=== PATIENT | female | born 1995 | race African-American/Black ===

== ENCOUNTER 2016-08-12 09:37 | Inpatient (IN) | payer OTHER ==
[2016-08-12] VITALS (28 sets, daily range): BP systolic 121–156; BP diastolic 78–107
[~2016-08-12] VITALS: Ht 162.6 cm; Wt 72.0 kg
[~2016-08-12 09:37] MED LIST: PRENTAB9 PO
[2016-08-12 15:38] LABS: BASO # 0.1 K/mm3 (0.0-0.2); BASO % 1.1 % (0.0-1.0); EOS # 0.2 K/mm3 (0.0-0.50); EOS % 2.5 % (0.0-3.0); LARGE UNSTAINED CELL # 0.1 K/mm3 (0.0-0.4); LARGE UNSTAINED CELL % 1.7 % (0.0-4.0); LYMPH # 1.7 K/mm3 (1.5-6.5); MEAN CORPUSCULAR HEMOGLOBIN 27.5 pg (27.0-33.0); MEAN CORPUSCULAR HGB CONC 34.1 g/dl (32.0-36.5); MEAN CORPUSCULAR VOLUME 80.5 fl (80.0-96.0); MONO # 0.3 K/mm3 (0.0-0.8); MONO % 5.3 % (0.0-5.0); NEUTROPHILS # 3.9 K/mm3 (1.8-7.7); NEUTROPHILS % 63.3 % (36.0-66.0); PLATELET COUNT, AUTOMATED 171 k/mm3 (150-450); RED CELL DISTRIBUTION WIDTH 15.1 % (11.5-14.5); WHITE BLOOD COUNT 6.1 K/mm3 (4.0-10.0)
[2016-08-12 15:56] LABS: ALBUMIN 2.6 GM/DL (3.2-5.2); ALBUMIN/GLOBULIN RATIO 0.76 (1.00-1.93); ALKALINE PHOSPHATASE 171 U/L (45-117); ALT/SGPT 13 U/L (12-78); AST/SGOT 16 U/L (15-37); BILIRUBIN,DIRECT 0.1 MG/DL (0.0-0.2); BILIRUBIN,TOTAL 0.3 MG/DL (0.2-1.0); CREATININE FOR GFR 1.21 MG/DL (0.55-1.02); GLOMERULAR FILTRATION RATE > 60.0 (>60); URIC ACID 6.3 MG/DL (2.6-6.0)
[2016-08-12] MEDS ORDERED: PENICILLIN G POTASSIUM IV 5 MU in D5W MINI-BAG PLUS 100 ML IV STA (17:59)
[2016-08-12] MEDS ORDERED: OXYTOCIN DRIP 30 UNITS in APPROPRIATE DILUENT 1 EA IV SCH (18:00)
[2016-08-12] MEDS ORDERED: CALCIUM GLUCONATE 1,000 MG in D5W MINI-BAG PLUS 100 ML IV PRN (18:00)
[2016-08-12] MEDS ORDERED: MAG Sulf (L&D) 4 GM/100 ML 4 GM in APPROPRIATE DILUENT 1 EA IV ONE (18:00)
[2016-08-12] MEDS: LR 1,000 ML IV SCH (18:37)
[2016-08-12] MEDS: MAG Sulf (OBGYN) 20GM/500ML 20,000 MG in APPROPRIATE DILUENT 1 EA IV SCH (18:59)
[2016-08-12] MEDS: PENICILLIN G POTASSIUM IV 2.5 MU in D5W 100 ML IV SCH (22:35)
[2016-08-12] MEDS ORDERED: FENTANYL 2MCG/ML ROPIVACAINE 0.2% NACL 250 ML CADD As Ordered ONE (23:42)
[2016-08-13] VITALS (52 sets, daily range): BP systolic 106–137; BP diastolic 63–98
[2016-08-13] MEDS ORDERED: ONDANSETRON 4MG/2ML VIAL (J2405) IV PRN (00:33)
[2016-08-13] MEDS ORDERED: EPIDURAL COMMENT XX SCH (00:33)
[2016-08-13] MEDS ORDERED: NALOXONE INJ 0.4 MG/1 ML VIAL (J2310) IV PRN (00:33)
[2016-08-13] MEDS: FENTANYL/ROPIVACAINE/NACL CADD 250 ML EPIDURAL SCH (00:33)
[2016-08-13] MEDS ORDERED: EPIDURAL/PCA KEYS XX PRN (00:33)
[2016-08-13] MEDS ORDERED: diphenhydrAMINE INJ 50MG/ML VIAL (J1200) IV PRN (00:33)
[2016-08-13] MEDS ORDERED: ePHEDrine SULFATE 25 MG/5 ML(5MG/ML) SYRINGE IV PRN (00:33)
[2016-08-13] MEDS ORDERED: REFRIGERATOR IV KEYS XX PRN (00:33)
[2016-08-13] MEDS ORDERED: LACTATED RINGER'S 1000 ML IV PRN (00:33)
[2016-08-13] MEDS: PENICILLIN G POTASSIUM IV 2.5 MU in D5W 100 ML IV SCH ×6 (02:31→22:39)
[2016-08-13] MEDS: MAG Sulf (OBGYN) 20GM/500ML 20,000 MG in APPROPRIATE DILUENT 1 EA IV SCH ×2 (03:01→13:02)
[2016-08-13] MEDS: LR 1,000 ML IV SCH (16:57)
[2016-08-13 17:19] LABS: MEAN CORPUSCULAR HEMOGLOBIN 28.3 pg (27.0-33.0); MEAN CORPUSCULAR HGB CONC 33.6 g/dl (32.0-36.5); MEAN CORPUSCULAR VOLUME 84.1 fl (80.0-96.0); RED CELL DISTRIBUTION WIDTH 14.2 % (11.5-14.5); WHITE BLOOD COUNT 10.5 K/mm3 (4.0-10.0)
[2016-08-13 17:43] LABS: BILIRUBIN,TOTAL 0.6 MG/DL (0.2-1.0); CREATININE FOR GFR 1.48 MG/DL (0.55-1.02); GLOMERULAR FILTRATION RATE 57.4 (>60); URIC ACID 6.4 MG/DL (2.6-6.0)
[2016-08-13 17:59] LABS: MAGNESIUM LEVEL 10.3 MG/DL (1.8-2.4)
[2016-08-13] MEDS ORDERED: OXYTOCIN 30 UNITS IN 0.9% NaCl 500ML IV BAG (J2590) As Ordered ONE (23:28)
[2016-08-13] MEDS ORDERED: OXYTOCIN INJ 10 UNITS/ML VIAL (J2590) As Ordered ONE (23:28)
[2016-08-14] VITALS (18 sets, daily range): BP systolic 120–155; BP diastolic 64–91
[2016-08-14] MEDS: FENTANYL/ROPIVACAINE/NACL CADD 250 ML EPIDURAL SCH (00:33)
[2016-08-14] MEDS ORDERED: OXYTOCIN DRIP 30 UNITS in APPROPRIATE DILUENT 1 EA IV SCH (00:42)
[2016-08-14] MEDS ORDERED: RHOGAM 300 MCG (1500 IU) INJ (J2790) IM SCH (00:45)
[2016-08-14] MEDS ORDERED: METHYLERGONOVINE MALEATE 0.2 MG TAB PO PRN (00:45)
[2016-08-14] MEDS ORDERED: DOCUSATE SODIUM 100 MG CAP PO PRN (00:45)
[2016-08-14] MEDS ORDERED: DIBUCAINE 1% OINTMENT 30GM TOP PRN (00:45)
[2016-08-14] MEDS ORDERED: IBUPROFEN 800 MG TAB PO PRN (00:45)
[2016-08-14] MEDS ORDERED: ACETAMINOPHEN 500 MG TAB PO PRN (00:45)
[2016-08-14] MEDS ORDERED: MEASLES,MUMPS,RUBELLA VACCINE INJ (MMR-II) (90707) SC SCH (00:45)
[2016-08-14] MEDS ORDERED: MOM 30ML SUSPENSION UDC PO PRN (00:45)
[2016-08-14] MEDS ORDERED: ANUSOL HC CREAM 30GM TOP PRN (00:45)
[2016-08-14 01:31] LABS: CORD GAS ABE V -9.4; CORD GAS HCO3 V 17.8 MEQ/L; CORD GAS O2 SAT V 40.6 %; CORD GAS PH V 7.234 UNITS; CORD GAS PO2 V 21.7 mmHg; CORD GAS SBC V 15.8 MEQ/L; CORD GAS TCO2 V 19.1 MEQ/L
[2016-08-14 01:33] LABS: CORD GAS ABE A -7.6; CORD GAS HCO3 A 20.9 MEQ/L; CORD GAS O2 SAT A 28.7 %; CORD GAS PCO2 A 53.8 mmHg; CORD GAS PH A 7.207 UNITS; CORD GAS SBC A 16.9 MEQ/L; CORD GAS TCO2 A 22.5 MEQ/L
[2016-08-14] MEDS: PRENATAL VITAMIN TAB PO SCH (08:02)
--- NOTE | 2016-08-14 08:54 | DN ---
DATE: This lady is at 39 and 6 gestation and was admitted for induction of labor because of preeclampsia. She had been on mag sulfate for a continued period of time. Because her mag levels were 10.4 and climbing, reflexes were reduced and she was responsive but continued sleeping throughout. We elected to decrease it to 1 gram per hour, and then with repeat of mag level unchanged, we discontinue the mag level at the time of delivery. She became fully dilated, effective epidural, and pushed well. Despite the fact she had a low baseline, the baby was in the POP position. heart rate was between 100 and 99 beats per minute. No active late decelerations, but reduced variability, possibly related to the overdose from her mag sulfate. Her contractions were not effective despite the fact being on 20 milliunits of Pitocin secondary to the fact of mag sulfate. We explained to the mother and regarding a low vacuum application with risks and benefits and the fact that the bradycardia was persisting. Dr. Valdivia was in attendance for resuscitation. We placed the vacuum in the appropriate position with the patient fully dilated and the bladder empty. We did one pull with 65 mmHg to the perineum, removed the vacuum and the next contraction the patient had a spontaneous vaginal delivery of a live female infant weighing 2880 grams, 6 pounds 6 ounces. scores were 1 and 9 at 1 and 5 minutes respectively. Arterial and venous pH were performed, not yet available for review. Placenta delivered spontaneously thereafter. Three-vessel cord. Membranes and tissues intact. Placenta was sent to pathology under separate cover. Examination of the cervix was normal. Vagina showed a small little tear in the right side, oversewn with two stitches [id number] #2-0 Vicryl on a J339. Sphincter was intact, and the mucosa was intact as well. Uterus contracted well under Pitocin. Doherty catheter was left within for monitoring and because of preeclampsia and urinary output. The patient and baby tolerating procedure well.
[2016-08-15 06:22] VITALS: BP 132/73
--- NOTE | 2016-08-15 06:37 | IPNPDOC ---
Text Note Date of Service The patient was seen on 08/15/16 at 06:36. NOTE PPD1 Prog note States feeling well. No complaints. Pain controlled. Breast feeding well. VB slowing. Ambulatory and voiding well. No N/V/CP/SOB/LP. VSS Ut at U-2/firm LE no CCE Small skin tag on left breast examined at pt request, shold not cause any problems with nursing a/p: Doing well. Routine PP care, likely d/c tomorrow, to boarding if baby still admitted. Sessions MD HALEY,Bassam, I+O VSBassam I+O Vital Signs Date Time Temp Pulse Resp B/P Pulse Ox O2 Delivery O2 Flow Rate FiO2 08/15/16 06:22 98.0 66 16 132/73 08/13/16 00:40 98 I&O- Last 24 Hours up to 6 AM 08/15/16 06:00 Intake Total 380 ml Output Total 830 ml Balance -450 ml SESSIONS,PHYLLIS Clinton MD Aug 15, 2016 06:37
[2016-08-15 07:07] LABS: MEAN CORPUSCULAR HEMOGLOBIN 28.3 pg (27.0-33.0); MEAN CORPUSCULAR HGB CONC 33.9 g/dl (32.0-36.5); MEAN CORPUSCULAR VOLUME 83.4 fl (80.0-96.0); RED CELL DISTRIBUTION WIDTH 14.8 % (11.5-14.5)
[2016-08-15] MEDS: PRENATAL VITAMIN TAB PO SCH (08:07)
[2016-08-15 18:06] VITALS: BP 130/78
[2016-08-16 06:00] VITALS: BP 147/78
--- NOTE | 2016-08-16 07:31 | DSES ---
DATE OF ADMISSION: 08/12/2016 DATE OF DISCHARGE: This lady is a 21-year-old, 1, now para 1, admitted for induction of labor at 40 weeks because of acute preeclampsia. She had a spontaneous vaginal delivery of a live female in the POP position, 6 pounds 6 ounces, 2880 grams, Apgars of 1 and 9 at one and five minutes respectively. Arterial pH 7.20 and base excess -7.6, venous pH 7.23 and base excess -9.4. On discharge, her hemoglobin was 9.3, hematocrit 27.3, and platelets are 153. On admission, her hemoglobin was 10.7, hematocrit 31.4 and platelets were 171. Today, her blood pressure is 147/78, respirations are 16, pulse 67, temperature 97.9. She was GBS positive. She was monitored for preeclampsia. On her second day, we discussed phlebitis, cystitis, mastitis, endometritis and cellulitis; diet, exercise and pain management; perineal, breast and wound care. The baby was in the intensive care unit (NICU) for a short period of time because the patient was on mag. Otherwise, baby and mother doing well. On discharge, the patient is normocephalic, atraumatic. Neck full range of motion. Pupils equally reactive to light. Distal pulses symmetric. No evidence of deep vein thrombosis (DVT), pulmonary embolism (PE) or superficial phlebitis. Chest is clear bilaterally to bases. No wheezes or rhonchi are noted. No costovertebral angle (CVA) tenderness. Uterus two below. Lochia is moderate. Four quadrant bowel sounds are noted. Perineum is healing and intact. She has no rashes, lesions or pruritus. No arthralgia or myalgia. No complaints of cough, wheezes, shortness of breath or dyspnea on exertion. She has no chest pain. She is not bleeding. Neurologic complete. No urgency or frequency. No incontinence. No nausea, vomiting, diarrhea or constipation. She does not smoke or drink, does not abuse drugs. No domestic violence. In summary, we have an induction of labor for preeclampsia, spontaneous delivery of live female , discharged to followup in six weeks' time at the office. Medications were given. She is requesting an intrauterine contraceptive device (IUCD) at her 6-week checkup. All questions were answered, 40-minute discussion.
[2016-08-16] MEDS ORDERED: MOM30SS PO (07:54)
[2016-08-16] MEDS ORDERED: NUPE1OIN2 TOP (07:54)
[2016-08-16] MEDS ORDERED: ACET50TA PO (07:54)
[2016-08-16] MEDS ORDERED: IBUP-1114 PO (07:54)
[2016-08-16] MEDS ORDERED: COLA100C PO (07:54)
[2016-08-16] MEDS ORDERED: ANUS2.5C2 TOP (07:54)
[2016-08-16] MEDS: PRENATAL VITAMIN TAB PO SCH (08:19)
== END 2016-08-16 11:40 | disposition home or self-care (01) | DRG 775 ==
LOC: M LDO 09:37 → M LDI 17:43 → M OBS 08-14 03:47
PROVIDERS: ADMIT Obstetrics & Gynecology; ATTEND Obstetrics & Gynecology
PROC: 10D07Z6 Extraction of Products of Conception, Vacuum, Via Natural or Artificial Opening (ICD-10-PCS; principal; 2016-08-14)
DX: O14.94 Unspecified pre-eclampsia, complicating childbirth (principal); Z37.0 Single live birth; Z3A.39 39 weeks gestation of pregnancy; O48.0 Post-term pregnancy; O99.820 Streptococcus B carrier state complicating pregnancy